=== PATIENT | male | born 1945 | race Caucasian/White ===

== ENCOUNTER → 2018-09-03 08:33 | Outpatient (CLI) | payer OTHER, MEDICARE, SELFPAY ==
--- NOTE | 2018-09-10 16:02 | PM.PFT.1 ---
Pulmonary Function Test Referral & Results Date Patient Seen: 09/03/18 Requesting provider: Luisa Whatley Indication: Shortness of breath Results: The spirometry demonstrates an FVC of 1.74 L which is 36% of predicted. The FEV1 was measured at 1.27 L which is 36% of predicted. The FEV1/FVC ratio was 73 which is 100% of predicted. Following the administration of bronchodilator there was a 43% improvement in FEF 25-75%. Lung volumes show an SVC of 1.69 L which is 35% of predicted. The diffusing capacity was measured at 16.26 which is 46% of predicted. No hemoglobin value was provided, so no correction for potential anemia could be made, if appropriate. The maximum voluntary ventilation was reduced Interpretation: This study demonstrates severe obstructive lung disease with some limited evidence of benefit following bronchodilator, particularly small airway flow based on improvement in FEF 25-75% There is also severe reduction in lung volumes suggesting severe restrictive lung disease There is also moderately severe reduction in diffusing capacity suggesting significant disease at the capillary alveolar level Altogether this is consistent with a diagnosis of rather severe COPD
== END ==
PROVIDERS: Family Provider Family Medicine Geriatric Medicine; PCP Family Medicine Geriatric Medicine; Visit Provider Family Medicine Geriatric Medicine
DX: R06.02 Shortness of breath (principal)
CPT/HCPCS: 94060; 94726; 94729

== ENCOUNTER → 2018-10-01 19:24 | Outpatient (REF) | payer OTHER, MEDICARE, SELFPAY ==
[2018-10-01 21:13] LABS: Add Manual Diff / Slide Review NO; Basophils Absolute Auto 100 /uL (0-100); Basophils Percent Auto 1.1 % (0-2); Eosinophils Absolute Auto 400 /uL (0-450); Eosinophils Percent Auto 4.2 % (2-4); Hematocrit 42.6 % (41-53); Hemoglobin 13.2 g/dL (13.5-17.5); Lymphocytes Absolute Auto 2500 /uL (1100-4500); Mean Corpuscular HGB Conc 30.9 % (30-36); Mean Corpuscular Hemoglobin 26.5 PG (26-34); Mean Corpuscular Volume 85.5 fL (80-100); Monocytes Absolute Auto 1000 /uL (0-900); Monocytes Percent Auto 11.9 % (3-14); Neutrophils Absolute Auto 4500 /uL (1500-7000); Neutrophils Percent Auto 52.8 % (50-75); Platelet Count 273 X10^3/uL (150-400); Red Blood Cell Count 4.98 X10^6/uL (4.5-5.9); Red Cell Distribution Width 14.1 % (11.6-14.8); White Blood Cell Count 8.5 X10^3/uL (4.5-11.0)
[2018-10-01 21:33] LABS: Alanine Aminotransferase 51 IU/L (21-72); Albumin Globulin Ratio 1.2 (1.0-2.8); Alkaline Phosphatase 69 U/L (38-126); Aspartate Aminotransferase 35 IU/L (17-59); BUN Creatinine Ratio 16.7 (6-22); Bilirubin Total 0.3 mg/dL (0.2-1.3); Blood Urea Nitrogen 15 mg/dL (9-20); Calcium 8.9 mg/dL (8.4-10.2); Carbon Dioxide 32 mmol/L (22-32); Chloride 101 mmol/L (98-107); Cholesterol 130 mg/dL (140-199); Estimated Glomerular Filt Rate > 60.0 mL/min (>60); Globulin 3.3 g/dL (1.7-4.1); Glucose 88 mg/dL (80-110); HDL Cholesterol 39 mg/dL (40-60); HEMOLYSIS 15 (0-50); LDL Cholesterol Calculated 71 mg/dL (<100); Potassium 4.2 mmol/L (3.4-5.1); Sodium 141 mmol/L (137-145); Total Protein 7.3 g/dL (6.3-8.2); Triglycerides 99 mg/dL (35-150)
== END ==
LOC: LAB 19:24
PROVIDERS: Family Provider Family Medicine Geriatric Medicine; PCP Family Medicine Geriatric Medicine; Visit Provider Family Medicine Geriatric Medicine
DX: E78.5 Hyperlipidemia, unspecified (principal); R73.01 Impaired fasting glucose; I10 Essential (primary) hypertension
CPT/HCPCS: 36415; 80053; 80061; 85025